=== PATIENT | male | born 1960 | race African-American/Black ===

== ENCOUNTER 2018-12-30 07:04 | Emergency (ER) | payer BC ==
[2018-12-30 08:05] LABS: #Lymphocytes 1.3 thou/uL (1.20-3.40); #Monocytes 0.6 thou/uL (0.11-0.59); %Basophils 1.1 % (0.0-1.0); %Eosinophils 1.1 % (0.0-10.0); %Lymphocytes 33.5 % (21.0-51.0); %Monocytes 14.3 % (0.0-10.0); %Neutrophils 50.1 % (42.0-75.0); Hemoglobin 14.2 g/dL (14.0-18.0); Mean Corpuscular HGB CONC 32.6 g/dL (32.0-36.0); Mean Corpuscular Hemoglobin 27.4 pg (27.0-31.0); Mean Corpuscular Volume 84.2 fL (78.0-98.0); Mean Platelet Volume 7.4 fL (7.4-10.4); Platelet Count 479 thou/uL (130-400); RBC Distribution Width 12.1 % (11.5-14.5); Red Blood Cell (RBC) Count 5.17 mill/uL (4.70-6.10); White Blood Cell (WBC) Count 3.9 thou/uL (4.8-10.8)
--- NOTE | 2018-12-30 08:10 | RAD ---
SINGLE VIEW CHEST: Date: 12/30/18 COMPARISON: 12/23/18. HISTORY: Weakness and body aches. FINDINGS: Single view of the chest shows a normal sized cardiomediastinal silhouette. Bilateral vascular perihi lar fullness. Increased interstitial lung markings are present. There is no evidence of consolidation , mass, or pleural effusion. IMPRESSION: No evidence of acute cardiopulmonary disease. POS: [facility]
[2018-12-30] MEDS ORDERED: Acetaminophen 325 MG TAB ONE (08:14)
[2018-12-30 08:18] LABS: ALT (SGPT) 84 U/L (8-55); AST (SGOT) 51 U/L (5-34); Albumin 4.1 g/dL (3.5-5.0); Alkaline Phosphatase 79 U/L (40-150); Anion Gap 14 mmol/L (10-20); BUN (Urea Nitrogen) 11 mg/dL (8.4-25.7); Bilirubin, Total 0.5 mg/dL (0.2-1.2); Calc. Creatinine Clearance 0 mL/min (70-130); Calcium 9.9 mg/dL (7.8-10.44); Carbon Dioxide 25 mmol/L (22-29); Chloride 102 mmol/L (98-107); Estimated GFR-MDRD Greater than 90; Globulin 4.3 g/dL (2.4-3.5); Glucose 97 mg/dL (70-105); Lipase 22 U/L (8-78); Potassium 3.8 mmol/L (3.5-5.1); Protein, Total 8.4 g/dL (6.0-8.3); Sodium 137 mmol/L (136-145)
[2018-12-30] MEDS ORDERED: Aspirin 325 MG TAB ONE (09:33)
[2018-12-30] MEDS ORDERED: methylPREDNISolone Sod Succ/PF 125 MG/2 ML VIAL ONE (09:33)
[2018-12-30 09:37] LABS: Bilirubin Small (Negative); Blood, Urine Negative (Negative); Clarity CLEAR (Clear); Glucose, Urine (Dipstick) Negative (Negative); Leukocyte Negative (Negative); Nitrite Negative (Negative); Protein, Urine (Dipstick) 30 mg/dL (Neg-Trace); Specific Gravity, Urine 1.025 (1.002-1.036)
[2018-12-30 09:39] LABS: Bacteria/HPF None Seen HPF (None Seen); Hyaline Casts/LPF 0-3 HYALINE CAST LPF (0-3 Hyaline); Squamous Epithelial 0-3 HPF (0-3); WBC/HPF 0-3 HPF (0-3)
--- NOTE | 2018-12-30 11:23 | CT ---
CT ANGIOGRAM CHEST WITH CONTRAST: HISTORY: Dyspnea. COMPARISON: Chest radiograph of the same day. FINDINGS: CT angiogram chest is performed after the intravenous administration of contrast. Three-D rendering is provided. There is no proximal segmental pulmonary arterial filling defect. Pulmonary trunk size is normal. T he aortic size is nonaneurysmal. The thyroid is unremarkable. Limited evaluation of the upper abdomen is unremarkable. There is low-grade paracentral emphysema. There is cylindrical as well as cystic bronchiectasis in t he lower lobes. There is a focal area of consolidation in the peripheral aspect left lower lobe. Th ere is abnormal bronchial wall thickening in the lower lobes. There is mild fullness of the interstitium of the hilum bilaterally. No acute osseous abnormality. IMPRESSION: 1. Cylindrical and cystic bronchiectasis in the lower lobes bilaterally with bronchial wall thickeni ng as well as left lower lobe consolidation concern for superimposed pneumonia. The bronchiectasis i n this patient may be sequelae of the underlying chronic obstructive pulmonary disease or be infectio us in nature/autoimmune. 2. No pneumothorax. 3. No proximal segmental pulmonary arterial filling defect. 4. Fullness of the interstitium of the hilum bilaterally suggesting pulmonary venous congestion. POS: [facility]
[2018-12-30] MEDS ORDERED: ISOVUE-370 76%-LOCM 1 ML ONE (13:38)
== END 2018-12-30 11:40 | disposition home or self-care (01) ==
LOC: ERS 07:04
DX: J18.1 Lobar pneumonia, unspecified organism (principal); R74.0 Nonspecific elevation of levels of transaminase and lactic acid dehydrogenase [LDH]; Z71.6 Tobacco abuse counseling
CPT/HCPCS: 36415; 71045; 71275; 80053; 81003; 81015; 83690; 83880; 84484; 85025; 85379; 87804; 93005; 94640; 96361; 96374; 99406; J2930; J7620; Q9966

== ENCOUNTER 2021-07-30 08:17 | Emergency (ER) | payer BC, SELFPAY ==
[2021-07-30] MEDS ORDERED: Acetaminophen 500 MG TAB ONE (08:32)
== END 2021-07-30 09:23 | disposition home or self-care (01) ==
LOC: ERS 08:17
DX: S90.121A Contusion of right lesser toe(s) without damage to nail, initial encounter (principal); I10 Essential (primary) hypertension; F17.210 Nicotine dependence, cigarettes, uncomplicated; Z79.899 Other long term (current) drug therapy